=== PATIENT | female | born 1990 | race Caucasian/White ===

== ENCOUNTER 2017-03-31 17:20 | Emergency (ER) | payer BC, OTHER ==
[~2017-03-31] VITALS: Ht 170.2 cm; Wt 59.2 kg
[~2017-03-31 17:20] MED LIST: BCPILLS PO; CITA10TA8 PO
[2017-03-31 17:23] VITALS: TEMP 36.5; Ht 170.2 cm; Wt 59.2 kg
[2017-03-31] MEDS ORDERED: OPTIRAY 320 IV PRN (17:45)
[2017-03-31] MEDS ORDERED: PRENTAB26 PO (18:07)
[2017-03-31] MEDS ORDERED: CITA20TA4 PO (18:07)
[2017-03-31 18:26] LABS: BASO % 0.4 %; BASO ABS # 0.02 K/uL (0-0.2); EOS % 3.1 %; EOS ABS # 0.14 K/uL (0-0.5); HEMATOCRIT 39.3 % (37-47); HEMOGLOBIN 13.9 g/dL (12.0-16.0); IG# 0.01 K/uL (0.00-0.02); LYMPH % 26.9 %; LYMPH ABS # 1.22 K/uL (1.2-3.4); MEAN CELL VOLUME 90.8 fL (80-100); MEAN CORPUSCULAR HEMOGLOBIN 32.1 pg (25-34); MEAN CORPUSCULAR HGB CONC 35.4 g/dl (32-36); MEAN PLATELET VOLUME 11.2 fL (7.4-10.4); MONO % 13.7 %; MONO ABS # 0.62 K/uL (0.11-0.59); NEUT % 55.7 %; NEUT ABS # 2.53 K/uL (1.4-6.5); PLATELET COUNT 149 K/uL (130-400); RED CELL DISTRIBUTION WIDTH CV 11.8 % (11.5-14.5); RED CELL DISTRIBUTION WIDTH SD 39.3 fL (36.4-46.3); WHITE BLOOD COUNT 4.54 K/uL (4.8-10.8)
[2017-03-31 18:47] LABS: CREATININE 0.77 mg/dl (0.60-1.20); POTASSIUM 3.6 mmol/L (3.5-5.1)
[2017-03-31 18:50] LABS: TOTAL PROTEIN 7.8 gm/dl (6.4-8.2)
--- NOTE | 2017-03-31 19:19 | EMERGENCY ROOM VISIT NOTE ---
History First contact with patient: 17:27 Chief Complaint: ABDOMINAL PAIN Stated Complaint: PAIN IN LOWER RT ABDOMEN, BACK AND THIGH History of Present Illness The patient is a 27 year old female who presents to the Emergency Room with complaints of right lower abdominal pain that started yesterday. She describes as a sharp, stabbing sensation that radiates to her back and down her right thigh. She also complains of diarrhea today. No vomiting. Denies fever. No urinary symptoms. She denies any vaginal discharge. She took ibuprofen with minimal relief of the pain. Review of Systems 10 system review performed and negative unless noted in HPI or below Past Medical/Surgical History Otherwise healthy Social History Smoking Status: Never Smoker Marital Status: Current/Historical Medications Scheduled Citalopram Hydrobromide (Citalopram Hydrobromide), 10 TAB PO DAILY Multivit/Min/Iron/Fol Ac/Pren ( Vitamin), 1 TAB PO DAILY Scheduled PRN Oxycodone/Acetaminophen 5MG/325MG (Percocet 5MG/325MG), 1 TAB PO Q4H PRN for Pain Physical Exam Vital Signs Date Time Temp Pulse Resp B/P (MAP) Pulse Ox O2 Delivery O2 Flow Rate FiO2 03/31/17 21:31 81 16 127/76 99 Room Air 03/31/17 19:39 85 16 127/71 99 Room Air 03/31/17 17:23 36.5 90 17 150/109 100 Room Air Physical Exam VITALS: Vitals are noted on the nurse's note and reviewed by myself. Vital signs stable. GENERAL: 27-year-old female, in no acute distress, nondiaphoretic, well- developed well-nourished. SKIN: The skin was without rashes, erythema, edema, or bruising. HEAD: Normocephalic atraumatic. HEART: Regular rate and rhythm without murmurs gallops or rubs. LUNGS: Clear to auscultation bilaterally without wheezes, rales or rhonchi. No accessory muscle use. ABDOMEN: Bowel sounds present, but hypoactive. Tenderness to palpation in the right lower quadrant. No guarding or rebound tenderness. No CVA tenderness bilaterally. MUSCULOSKELETAL: No muscle atrophy, erythema, or edema noted. Strength 5/5 throughout. NEURO: Patient was alert and oriented to person place and time. Normal sensation to touch. No focal neurological deficits. Medical Decision & Procedures ER Provider Diagnostic Interpretation: CT abdomen and pelvis with IV and oral contrast IMPRESSION: No significant abnormality identified within the abdomen or pelvis. Normal appendix. 2 cm bilateral ovarian cysts. The above report was generated using voice recognition software. It may contain grammatical, syntax or spelling errors. Electronically signed by: Spike Macias M.D. 03/31/2017 8:24 PM Dictated Date/Time: 03/31/2017 8:21 PM The status of this report is Signed. Draft = Not yet reviewed or approved by Radiologist. Signed = Reviewed and approved by Radiologist. Laboratory Results 03/31/17 18:00 Red Blood Count 4.33, Mean Corpuscular Volume 90.8, Mean Corpuscular Hemoglobin 32.1, Mean Corpuscular Hemoglobin Concent 35.4, Mean Platelet Volume 11.2, Neutrophils (%) (Auto) 55.7, Lymphocytes (%) (Auto) 26.9, Monocytes (%) (Auto) 13.7, Eosinophils (%) (Auto) 3.1, Basophils (%) (Auto) 0.4, Neutrophils # (Auto ) 2.53, Lymphocytes # (Auto) 1.22, Monocytes # (Auto) 0.62, Eosinophils # (Auto ) 0.14, Basophils # (Auto) 0.02 03/31/17 18:00 Test 03/31/17 18:00 White Blood Count 4.54 K/uL (4.8-10.8) Red Blood Count 4.33 M/uL (4.2-5.4) Hemoglobin 13.9 g/dL (12.0-16.0) Hematocrit 39.3 % (37-47) Mean Corpuscular Volume 90.8 fL (80-100) Mean Corpuscular Hemoglobin 32.1 pg (25-34) Mean Corpuscular Hemoglobin Concent 35.4 g/dl (32-36) Platelet Count 149 K/uL (130-400) Mean Platelet Volume 11.2 fL (7.4-10.4) Neutrophils (%) (Auto) 55.7 % Lymphocytes (%) (Auto) 26.9 % Monocytes (%) (Auto) 13.7 % Eosinophils (%) (Auto) 3.1 % Basophils (%) (Auto) 0.4 % Neutrophils # (Auto) 2.53 K/uL (1.4-6.5) Lymphocytes # (Auto) 1.22 K/uL (1.2-3.4) Monocytes # (Auto) 0.62 K/uL (0.11-0.59) Eosinophils # (Auto) 0.14 K/uL (0-0.5) Basophils # (Auto) 0.02 K/uL (0-0.2) RDW Standard Deviation 39.3 fL (36.4-46.3) RDW Coefficient of Variation 11.8 % (11.5-14.5) Immature Granulocyte % (Auto) 0.2 % Immature Granulocyte # (Auto) 0.01 K/uL (0.00-0.02) Urine Color YELLOW Urine Appearance CLEAR (CLEAR) Urine pH 8.0 (4.5-7.5) Urine Specific Desha 1.008 (1.000-1.030) Urine Protein NEG (NEG) Urine Glucose (UA) NEG (NEG) Urine Ketones NEG (NEG) Urine Occult Blood NEG (NEG) Urine Nitrite NEG (NEG) Urine Bilirubin NEG (NEG) Urine Urobilinogen NEG (NEG) Urine Leukocyte Esterase NEG (NEG) Anion Gap 5.0 mmol/L (3-11) Est Creatinine Clear Calc Drug Dose 101.7 ml/min Estimated GFR () 121.8 Estimated GFR (Non- 105.1 BUN/Creatinine Ratio 11.4 (10-20) Calcium Level 9.0 mg/dl (8.5-10.1) Total Bilirubin 0.4 mg/dl (0.2-1) Aspartate Amino Transf (AST/SGOT) 21 U/L (15-37) Alanine Aminotransferase (ALT/SGPT) 38 U/L (12-78) Alkaline Phosphatase 68 U/L (45-117) Total Protein 7.8 gm/dl (6.4-8.2) Albumin 4.0 gm/dl (3.4-5.0) Globulin 3.8 gm/dl (2.5-4.0) Albumin/Globulin Ratio 1.1 (0.9-2) Human Chorionic Gonadotropin, Qual NEG (NEG) Medications Administered Medications (Trade) Dose Ordered Sig/Abla Route Start Time Stop Time Status Last Admin Dose Admin Ketorolac Tromethamine (Toradol Inj) 30 mg NOW STAT IV 03/31/17 21:01 03/31/17 21:02 DC 03/31/17 21:14 30 MG Morphine Sulfate (MoRPHine SULFATE INJ) 4 mg ONE STAT IV 03/31/17 21:01 03/31/17 21:02 DC 03/31/17 21:13 4 MG ED Course Patient was seen and examined Vital signs including blood pressure were reviewed medications list was verified with patient Labs were obtained, and a saline lock was established The patient declined pain medication Imaging was performed and reviewed The patient was reassessed and complaining of pain. She was given Toradol and morphine. Upon reevaluation, the patient's pain was better. We reviewed her results. She voiced understanding. She was comfortable being discharged home. I reviewed discharge instructions the patient. They voiced understanding and had no further questions. Medical Decision DIFFERENTIAL DIAGNOSIS: Appendicitis, ureteral stone, ovarian cyst, torsion, ectopic , muscular pain, UTI, pyelonephritis This patient is a 27-year-old female that presents to emergency department with right lower quadrant abdominal pain. On exam, she was tender in that area. She did not have any guarding or rebound tenderness. Her labs are fairly unremarkable. Her hCG is negative. Her urinalysis is clean. I ordered a CT to rule out appendicitis. This shows to bilateral ovarian cysts. This is possibly the cause of her pain. Her pain was well-controlled in the emergency department. I believe she is stable to be discharged home with close follow- up. She and her are comfortable with this plan. She was sent home with a short course of pain medication. She was advised to follow-up with her primary care physician, and return immediately to the emergency department with any new or concerning symptoms. This chart was completed in part utilizing [employer] Speech Voice Recognition software. Attempts were made to minimize the grammatical errors, random word insertions, pronoun errors and incomplete sentences. Any formal questions or concerns about the content, text or information contained within the body of this dictation should be directly addressed to the provider for clarification. Impression Primary Impression: Ovarian cyst Departure Information Dispostion Home / Self-Care Prescriptions Oxycodone/Acetaminophen 5MG/325MG (PERCOCET 5MG/325MG) Tab 1 TAB PO Q4H Y for Pain, #15 TAB For Initial Treatment Prov: Radha Cerrato PA-C 03/31/17 Referrals Trice Pate D.O. (PCP) Patient Instructions [facility] Additional Instructions You had been evaluated in the emergency department for abdominal pain. This could be due to ovarian cysts. Ibuprofen 600 mg every 6 hours Percocet 1-2 tabs every 4 hours for severe pain. Do not drink alcohol or drive while taking this medication. This may be taken with ibuprofen, but avoid Tylenol. It is very important to follow up with your primary care provider within the next 1-2 days. Please call as soon as possible for a follow-up appointment. Please do not hesitate to return to the emergency department with any new, worsening or concerning symptoms; especially, fever, increased pain or vomiting
--- NOTE | 2017-03-31 20:26 | DIAGNOSTIC IMAGING REPORT ---
ABD/PELVIS IV AND ORAL CONT CT DOSE: 258.63 mGy.cm HISTORY: Pelvic pain RLQ pain radiating to back and down leg TECHNIQUE: Multiaxial CT images of the abdomen and pelvis were performed following the use of intravenous and oral contrast. A dose lowering technique was utilized adhering to the principles of ALARA. COMPARISON STUDY: None. FINDINGS: The lung bases are clear. The liver, spleen, gallbladder, pancreas, kidneys, and adrenal glands are within normal limits. No bowel wall thickening or obstruction. The pelvic organs are unremarkable. No suspicious lytic or blastic osseous lesions. 2 cm bilateral ovarian cysts. Normal appendix. IMPRESSION: No significant abnormality identified within the abdomen or pelvis. Normal appendix. 2 cm bilateral ovarian cysts. The above report was generated using voice recognition software. It may contain grammatical, syntax or spelling errors. Electronically signed by: Spike Macias M.D. 03/31/2017 8:24 PM Dictated Date/Time: 03/31/2017 8:21 PM
[2017-03-31] MEDS ORDERED: MoRPHine SULFATE 4 MG/ML 1 ML CARP\\VIAL IV STA (21:01)
[2017-03-31] MEDS ORDERED: KETOROLAC TROMETHAMINE 30 MG/ML VIAL IV STA (21:01)
[2017-03-31] MEDS ORDERED: PERCOCET HOME PACK PO ONE (21:15)
[2017-03-31 21:31] VITALS: BP 127/76; PULSE 81; O2SAT 99
[2017-03-31] MEDS ORDERED: OXYC-57 PO (21:40)
== END 2017-03-31 21:55 | disposition home or self-care (01) ==
LOC: C.EDB 17:22
DX: N83.201 Unspecified ovarian cyst, right side (principal); N83.202 Unspecified ovarian cyst, left side

== ENCOUNTER 2018-07-19 05:55 | Inpatient (IN) ==
[2018-07-19] MEDS ORDERED: OXYTOCIN 30 UNITS/500 ML BAG IV PRN ×3 (06:31→19:34)
[2018-07-19] MEDS ORDERED: LACTATED RINGER'S 1,000 ML IV PRN ×3 (06:31→14:50)
[2018-07-19 07:07] LABS: Hematocrit (blood only) 36.9 % (37-47); Mean Corpuscular Volume 93.7 fL (80-100); Mean Platelet Volume 11.9 fL (7.4-10.4); Platelet Count 103 K/uL (130-400); RDW Coefficient of Variation 12.9 % (11.5-14.5); Red Blood Count 3.94 M/uL (4.2-5.4)
[2018-07-19 07:10] LABS: Mean Corpuscular Hgb Conc 35.2 g/dL (32-36)
[2018-07-19 09:43] LABS: Alanine Aminotransferase 16 U/L (12-78); Alkaline Phosphatase 138 U/L (45-117); Aspartate Aminotransferase 17 U/L (15-37); Bilirubin Direct < 0.1 mg/dl (0-0.2); Bilirubin,Total 0.3 mg/dl (0.2-1); Total Protein 6.9 gm/dl (6.4-8.2)
[2018-07-19] MEDS: CITALOPRAM 20 MG TAB PO SCH (10:53)
--- NOTE | 2018-07-19 11:37 | Labor Progress Brief Note ---
Date of Service July 19, 2018 doing well SROM >6hrs mod Meconium irreg ctx VE /-3 discussed pitocin augmentation pt has agreed Physical Exam Vital Signs (Past 24 Hours): Last Vital Signs Temp 36.9 C 07/19/18 11:07 Pulse 122 H 07/19/18 11:09 Resp 20 07/19/18 11:07 BP 150/72 H 07/19/18 11:09
[2018-07-19] MEDS: LACTATED RINGER'S 1,000 ML IV SCH ×2 (12:23→14:05)
[2018-07-19] MEDS ORDERED: BUPIVACAINE 0.25% 30 ML VIAL ONE (13:19)
[2018-07-19] MEDS ORDERED: fentaNYL citrate 100 MCG/2 ML VIAL ONE (13:20)
[2018-07-19] MEDS ORDERED: fentaNYL 2MCG/ML ROPIV 1.25MG/ML 100 ML BAG EPI ONE (13:20)
[2018-07-19] MEDS ORDERED: ePHEDrine sulfate 50 MG/ML AMP ONE (13:20)
--- NOTE | 2018-07-19 13:44 | Anesthesiology Consultation ---
Date of Service July 19, 2018 Assessment & Plan (1) Encounter for pre-operative examination: (2) Encounter for pre-operative examination: History Height/Weight Height: 5 ft 7 in Weight: 77.111 kg Allergies Allergy/AdvReac Type Severity Reaction Status Date / Time No Known Allergies Allergy Unknown Verified 03/31/17 18:08 Medications Home Medications Medication Instructions Recorded Confirmed Last Taken citalopram 10 mg PO DAILY 07/19/18 07/19/18 07/18/18 vit-iron fum-folic ac 1 tab PO DAILY 07/19/18 07/19/18 07/18/18 [ Vitamin] Active Medications Generic Name Dose Route Start Last Admin Trade Name Freq PRN Reason Stop Dose Admin Citalopram Hydrobromide 10 mg 07/19/18 10:15 07/19/18 10:53 Celexa PO 08/18/18 10:14 10 mg QAM PAM Administration Lactated Ringer's 1,000 mls @ 125 mls/hr 07/19/18 06:45 07/19/18 13:10 Lr IV 07/21/18 06:44 999 mls/hr .Q8H PAM Infusion Oxytocin 30 units in 500 mls @ 4 mls/hr 07/19/18 11:37 07/19/18 13:00 Pitocin IV 07/21/18 11:36 0.24 units/hr .Q24H PRN 4 mls/hr Labor Induction/Augmentation Titration Protocol 0.24 UNITS/HR Past Medical History Medical History Anxiety on Celexa 10 mg daily Fracture of right lower extremity age 6; multiple surgeries from accident GERD (gastroesophageal reflux disease) Red cell alloimmunization, maternal, antepartum anti k antigen; FOB tested negative for Amy antigen so no further f etal/obstetric monitoring necessary per MFM [place] teeth extracted Past Surgical History Surgical History History of myringotomy as a child Social History Smoking Status: Never smoker Do You Dip or Chew Tobacco: No Hx Alcohol Use: No Hx Substance Use: No Physical Exam Vital Signs Last Vital Signs Temp 36.8 C 07/19/18 12:26 Pulse 102 H 07/19/18 13:27 Resp 20 07/19/18 12:26 BP 137/88 07/19/18 13:27 Testing Laboratory Results 07/19/18 06:47
[2018-07-19] MEDS ORDERED: ONDANSETRON INJ 2 MG/ML 2 ML VIAL IV PRN (14:50)
[2018-07-19] MEDS ORDERED: NALOXONE HCL 0.4 MG/1 ML VIAL/CARP IV PRN (14:50)
[2018-07-19] MEDS ORDERED: NALOXONE HCL 1 MG in SODIUM CHLORIDE 0.9% 1000ML 1,000 ML IV PRN (14:50)
[2018-07-19] MEDS ORDERED: NALBUPHINE HCL INJ 10 MG/ML AMP IV PRN (14:50)
[2018-07-19] MEDS ORDERED: fentaNYL 2MCG/ML ROPIV 1.25MG/ML 100 ML BAG EPI PRN (14:50)
[2018-07-19] MEDS ORDERED: ePHEDrine sulfate 50 MG/ML AMP IV PRN (14:50)
[2018-07-19] MEDS ORDERED: DiphenhydrAMINE HCL 50 MG/ML VIAL IV PRN (14:50)
[2018-07-19] MEDS ORDERED: BENZOCAINE 20% AER SPR 82.5 GM CAN EXT PRN (19:34)
[2018-07-19] MEDS ORDERED: HYDROCORTISONE ACETATE 25 MG SUPP PR PRN (19:34)
[2018-07-19] MEDS ORDERED: SUPERCREAM 0.870% 15 GM JAR EXT PRN (19:34)
[2018-07-19] MEDS ORDERED: BISACODYL 10 MG SUPP PR PRN (19:34)
[2018-07-19] MEDS ORDERED: ACETAMINOPHEN 325 MG TAB PO PRN (19:34)
[2018-07-19] MEDS ORDERED: DIPHTHERIA/TETANUS/PERTUSSIS 0.5 ML SYR/VIAL IM ONE (19:34)
--- NOTE | 2018-07-19 20:15 | Anesthesia Procedure Note ---
Date of Service July 19, 2018 Anesthesia Post Epidural Note Vital Signs Vital Signs: Temp Pulse Resp BP Pulse Ox 36.8 C 130 H 20 133/63 98 07/19/18 12:26 07/19/18 20:08 07/19/18 18:08 07/19/18 20:08 07/19/18 18:35 Notes Mental Status: alert / awake / arousable and participated in evaluation Nausea / Vomiting: adequately controlled Pain: adequately controlled Airway Patency, RR, SpO2: stable & adequate BP & HR: stable & adequate Hydration State: stable & adequate Neuraxial Anesthesia: was administered and sensory block is resolving Anesthetic Complications: no major complications apparent and Pt Satisfied with anesthetic care Epidural: Removed without complications and With tip intact
[2018-07-20] MEDS: IBUPROFEN 600 MG TAB PO PRN ×3 (04:26→20:48)
[2018-07-20 07:17] LABS: Hematocrit (blood only) 27.7 % (37-47); Hemoglobin 9.4 g/dL (12.0-16.0); Mean Corpuscular Hgb Conc 33.9 g/dL (32-36); Mean Corpuscular Volume 96.9 fL (80-100); Platelet Count 97 K/uL (130-400); Platelet Estimate Decreased (Normal); RDW Standard Deviation 44.9 fL (36.4-46.3); Red Blood Count 2.86 M/uL (4.2-5.4)
[2018-07-20] MEDS: DOCUSATE SODIUM 100 MG CAP PO SCH ×2 (08:26→20:48)
[2018-07-20] MEDS: FERROUS SULFATE 325 MG TAB PO SCH (08:27)
[2018-07-20] MEDS: PRENATAL VITAMIN 1 TAB PO SCH (08:27)
[2018-07-20] MEDS: CITALOPRAM 20 MG TAB PO SCH (08:27)
--- NOTE | 2018-07-20 10:49 | Obstetrical Progress Note ---
Date of Service July 20, 2018 Assessment & Plan (1) normal course: PPD #1 pt doing well anticipate disch tomorrow Subjective Ambulation: ambulating normally Voiding: no voiding problems Passing Gas:: Yes Diet Tolerance:: regular diet Lochia:: Small Feeding Type:: breast feeding Review of Systems All systems reviewed & are unremarkable except as noted in HPI & below Physical Exam Vital Signs (Past 24 Hours) Last Vital Signs Temp 36.7 C 07/20/18 09:17 Pulse 98 H 07/20/18 09:17 Resp 16 07/20/18 09:17 BP 103/67 07/20/18 09:17 Pulse Ox 97 07/19/18 23:20 Constitutional WD/WN, vitals as above well developed and well nourished Eyes PERRL, conjunctivae normal, anicteric sclerae Neck trachea midline, no thyromegaly Respiratory normal respiratory effort, lungs clear to auscultation Auscultation: no crackles, no rales and no wheezes Cardiovascular RRR, no murmur, no edema Gastrointestinal (Abdomen) normal bowel sounds, soft, nontender, no hepatosplenomegaly Uterus is below umbilicus Musculoskeletal no cyanosis or clubbing, extremities motor strength 5/5 Skin no rashes, warm and dry Neurologic patellar DTR's 2+ bilat, sensation intact Psychiatric A+Ox3, euthymic affect Genitourinary normal external appearance
[2018-07-20] MEDS ORDERED: BISACODYL 5 MG TABEC PO SCH (20:00)
[2018-07-21 01:06] VITALS: O2SAT 99
[2018-07-21] MEDS: IBUPROFEN 600 MG TAB PO PRN ×2 (03:40→09:15)
--- NOTE | 2018-07-21 07:07 | Delivery Summary ---
DATE OF OPERATION: 07/19/2018 DELIVERY NOTE The patient delivered a live in occiput anterior presentation. There was nuchal cord which was clamped and cut. Infant was placed on mother's abdomen. Infant required some resuscitation. Details of resuscitation are in the pediatric record. There was pediatric team at time of delivery. Cord blood and cord gas was obtained. Placenta was delivered. Estimated blood loss was about 350 mL. There was a small labia vagina tear which was repaired. There was good hemostasis post repair. All instruments were removed from the vagina and accounted for x2. The patient is doing well in recovery. I attest to the content of the Intraoperative Record and any orders documented therein. Any exception s are noted below.
[2018-07-21 07:51] LABS: Hematocrit (blood only) 26.7 % (37-47)
[2018-07-21] MEDS: PRENATAL VITAMIN 1 TAB PO SCH (08:36)
[2018-07-21] MEDS: DOCUSATE SODIUM 100 MG CAP PO SCH (08:36)
[2018-07-21] MEDS: CITALOPRAM 20 MG TAB PO SCH (08:36)
[2018-07-21] MEDS: FERROUS SULFATE 325 MG TAB PO SCH (08:36)
--- NOTE | 2018-07-21 09:28 | Obstetrical Progress Note ---
Date of Service July 21, 2018 Subjective doing well some concerns regarding breast feeding web coordinator Eri in to see her before discharge Physical Exam Vital Signs (Past 24 Hours): Last Vital Signs Temp 36.5 C 07/20/18 23:00 Pulse 68 07/20/18 23:00 Resp 24 07/20/18 23:00 BP 131/66 07/20/18 23:00 Pulse Ox 99 07/20/18 23:00 Constitutional: WD/WN, vitals as above comfortable abdomen soft fundus firm no edema Neg Elida's bilat. plan for discharge today
[2018-07-21 09:54] VITALS: TEMP 98.4
[2018-07-21 12:24] VITALS: BP 131/66; PULSE 97
== END 2018-07-21 15:10 | disposition home or self-care (01) | DRG 807 ==
LOC: OPB 05:55 → 4S1 06:02 → 4S2 07-20 00:54